=== PATIENT | male | born 1975 ===

== ENCOUNTER 2025-04-26 10:06 | Inpatient (IN) | payer OTHER ==
[~2025-04-26] VITALS: Ht 172.7 cm; Wt 114.6 kg
--- NOTE | 2025-04-26 10:42 | ED.PDOC ---
GI ASSESSMENT HPI Comments 50y M who presents to the ED for chief complaint of abdominal pain. Pt states he has been having abdominal pain since Thursday, 3 day prior. Pt states the pain is sharp, RUQ, non-radiating, with no associated exacerbating or relieving factors. Pt has associated nausea , malaise and headache but otherwise denies any other symptoms. Pt states his pain has prevented him from eating anything for the past 3x days. Pt states he went to [facility] today AM and tested COVID - and was referred to the ED for further evaluation. Pt states he ate at [employer] on Thursday when symptoms started and states he had a chicken sandwich. Pt states he was having diarrhea since last but states it stopped Thursday when abdominal pain started. Pt has noted temp of 100.4 F with otherwise stable vitals in the ED. Pt denies any other symptoms at this time. Chief Complaint: Abdominal Pain Time Seen by MD: 10:47 Reviewed Notes: Medications, Allergies Allergies: Coded Allergies: NO KNOWN ALLERGIES (Unverified , 04/26/25) Information Source: Patient Mode of Arrival: Ambulatory Brought in by: self Past Medical History PAST MEDICAL HISTORY: Denies Surgical History: Denies all surgeries Family History Family History: Reviewed,noncontributory to illness Social History Smoker: Non-Smoker Alcohol: Denies ETOH Use Drugs: Denies Drug Use Lives In: Home Constitutional: reports: weakness; denies: chills, diaphoresis, fatigue, fever, malaise, sweats, others EENTM: denies: blurred vision, double vision, ear bleeding, ear discharge, ear drainage, ear pain, ear ringing, eye pain, eye redness, hearing loss, mouth pain, mouth swelling, nasal discharge, nose bleeding, nose congestion, nose pain, photophobia, tearing, throat pain, throat swelling, voice changes, others Respiratory: denies: cough, hemoptysis, orthopnea, SOB at rest, shortness of breath, SOB with excertion, stridor, wheezing, others Cardiovascular: denies: chest pain, dizzy spells, diaphoresis, Dyspnea on exertion, edema, irregular heart beat, left arm pain, lightheadedness, palpitations, PND, syncope, others Gastrointestinal: reports: abdominal pain, diarrhea, nausea; denies: abdomen distended, blood streaked bowels, constipated, dysphagia, difficulty swallowing, hematemesis, melena, poor appetite, poor fluid intake, rectal bleeding, rectal pain, vomiting, others Genitourinary: denies: burning, dysuria, flank pain, frequency, hematuria, incontinence, penile discharge, penile sore, pain, testicle pain, testicle swelling, urgency, others Neurological: reports: headache; denies: dizziness, fainting, left sided numbness, left sided weakness, numbness, paresthesia, pre-existing deficit, right sided numbness, right sided weakness, seizure, speech problems, tingling, tremors, weakness, others Musculoskeletal: denies: back pain, gout, joint pain, joint swelling, muscle pain, muscle stiffness, neck pain, others Integumetry: denies: bruises, change in color, change in hair/nails, dryness, laceration, lesions, lumps, rash, wounds, others Allergic/Immunocompromised: denies: Difficulty Healing, Frequent Infections, Hives, Itching, others Hematologic/Lymphatic: denies: anemia, blood clots, easy bleeding, easy bruising, swollen glands, others Endocrine: denies: excessive hunger, excessive sweating, excessive thirst, excessive urination, flushing, intolerance to cold, intolerance to heat, unexplained weight gain, unexplained weight loss, others Psychiatric: denies: anxiety, bipolar disorder, depression, hopeless, panic disorder, schizophrenia, sleepless, suicidal, others All Other Systems: Reviewed and Negative Physical Exam General Appearance: Moderate Distress, Normal HEENT: Normal ENT Inspection, PERRL/EOMI Neck: Full Range of Motion, Non-Tender, Normal, Normal Inspection Respiratory: Chest Non-Tender, Lungs Clear, No Accessory Muscle Use, No Respiratory Distress, Normal Breath Sounds Cardiovascular: No Edema, No JVD, No Murmur, No Gallop, Normal Peripheral Pulses, Regular Rate/Rhythm Breast Exam: Deferred Gastrointestinal: Distended, No Organomegaly, No Pulsatile Mass, Normal Bowel Sounds, RLQ, Tenderness Genitalia: Deferred Pelvic: Deferred Rectal: Deferred Extremities: No calf tenderness, Normal capillary refill, Normal inspection, Normal range of motion, Non-tender, No pedal edema Neurologic: Alert, event staff member II-XII nml as Tested, No Motor Deficits, Normal Affect, Normal Mood, No Sensory Deficits Cerebellar Function: Normal Reflexes: Normal Skin: Dry, Normal Color, Warm Peripheral Pulses: 1+ carotid (R), 1+ carotid (L) Lymphatic: No Adenopathy Was a procedure done? Was a procedure done?: No GI differential Dx Differential Diagnosis: Appendicitis, Cholecystitis, Constipation, Diverticular disease, Gastritis/PUD, Gastroenteritis, Pancreatitis, UTI, Dehydration, Diabetes/ DKA, Electrolyte Imbalance, Food Poisoning, Bacterial, Viral, Stress Ulcer, Kidney Stone Other Differential Diagnosis biliary colic, gallstones, X-Ray, Labs, Meds, VS Vital Signs Date Time Temp Pulse Resp B/P (MAP) Pulse Ox O2 Delivery O2 Flow Rate FiO2 04/26/25 11:20 111 20 124/67 04/26/25 11:20 98.0 111 20 124/67 (86) 95 98.0 04/26/25 10:15 100.4 100 16 122/79 95 100.4 Lab Test 04/26/25 11:30 04/26/25 11:07 Range/Units Urine Color Light-orange Yellow Urine Clarity Clear Clear Urine pH 6.0 5.0-9.0 Urine Specific [place] 1.021 1.001-1.035 Urine Protein Trace H Negative Urine Ketones Negative Negative Urine Blood Negative Negative /uL Urine Nitrite Negative Negative Urine Bilirubin Negative Negative Urine Urobilinogen Normal Negative mg/dL Urine Leukocyte Esterase Negative Negative /uL Urine RBC 1 0 - 3 /hpf Urine Microscopic WBC 3 0-3 /HPF Urine Squamous Epithelial Cells None seen <5 /hpf Urine Bacteria None seen None Seen /hpf Urine Mucus Few None Seen Urine Glucose Normal Normal mg/dL White Blood Count 18.2 H 4.4-10.8 10^3/uL Red Blood Count 5.42 4.5-5.90 10^6/uL Hemoglobin 16.1 13.5-17.5 g/dL Hematocrit 45.7 41.0-53.0 % Mean Corpuscular Volume 84.4 80.0-100.0 fL Mean Corpuscular Hemoglobin 29.8 28.0-32.0 pg Mean Corpuscular Hemoglobin Concent 35.3 32.0-36.0 g/dL Red Cell Distribution Width 13.6 11.8-14.3 % Platelet Count 355 140-450 10^3/uL Mean Platelet Volume 7.6 6.9-10.8 fL Neutrophils (%) (Auto) 79.4 37.0-80.0 % Lymphocytes (%) (Auto) 9.7 L 10.0-50.0 % Monocytes (%) (Auto) 10.5 0.0-12.0 % Eosinophils (%) (Auto) 0.1 0.0-7.0 % Basophils (%) (Auto) 0.3 0.0-2.0 % Neutrophils # (Auto) 14.5 H 1.6-8.6 10 ^3/uL Lymphocytes # (Auto) 1.8 0.4-5.4 10 ^3/uL Monocytes # (Auto) 1.9 H 0-1.3 10 ^3/uL Eosinophils # (Auto) 0 0-0.8 10 ^3/uL Basophils # (Auto) 0 0-0.2 10 ^3/uL Nucleated Red Blood Cells 0.2 % Sodium Level 136 136-145 mmol/L Potassium Level 3.7 3.5-5.1 mmol/L Chloride Level 101 98-107 mmol/L Carbon Dioxide Level 26 20-31 mmol/L Anion Gap 9 5-15 Blood Urea Nitrogen 9 9-23 mg/dL Creatinine 1.25 0.700-1.30 mg/dL Glomerular Filtration Rate Calc 71 >90 mL/min BUN/Creatinine Ratio 7.2 L 10.0-20.0 Serum Glucose 122 H 74-106 mg/dL Calcium Level 8.9 8.7-10.4 mg/dL Magnesium Level 2.2 1.6-2.6 mg/dL Total Bilirubin 1.8 H 0.2-1.0 mg/dL Aspartate Amino Transferase (AST) 19 13-40 U/L Alanine Aminotransferase (ALT) 18 7-40 U/L Alkaline Phosphatase 107 46-116 U/L Total Protein 7.9 5.7-8.2 g/dL Albumin 4.5 3.2-4.8 g/dL Lipase 34 12-53 U/L Current Medications Medications (Trade) Dose Ordered Sig/Kalie Route Start Time Stop Time Status Last Admin Metoclopramide HCl (Reglan Injection) 10 mg ONCE ONCE IV 04/26/25 10:30 04/26/25 10:33 DC 04/26/25 11:16 Sodium Chloride 1,000 ml @ 1,000 mls/hr Q1H ONCE IVB 04/26/25 10:30 04/26/25 11:29 DC 04/26/25 11:16 Hydromorphone HCl (Dilaudid Injection) 0.5 mg ONCE ONCE IV 04/26/25 10:30 04/26/25 10:33 DC 04/26/25 11:[address] [address] Ph: [phone] DIAGNOSTIC IMAGING Diagnostic Imaging Report : [id number] Signed PATIENT: ABDULAZIZ CARRILLO ACCT: [id number] UNIT: [id number] : 1975 LOC: ER ROOM / BED: / AGE / SEX: 50 / M ADM STATUS: REG ER SERVICE 1029 ORDERING PHYSICIAN: JOSE E GUILLAUME MD PROCEDURE(s): ABPLIV - CT AB PEL WITH IV CON ONLY REASON: RIGHT-SIDED ABDOMINAL PAIN ORDER NUMBER(s): [id number], ACCESSION NUMBER(s): [id number] Indication: RIGHT-SIDED ABDOMINAL PAIN Technique: CT axial images of the abdomen and pelvis are obtained with intravenous contrast. Coronal and sagittal reformats were obtained. Radiation Dose Information: CTDI volume is 24.32 mGy. Dose-length product is 1471.95 mGy*cm Comparison: None FINDINGS: Lung bases demonstrate no pleural effusion. Adrenal glands, spleen, pancreas unremarkable. No enhancing hepatic lesion. No CT evidence for cholelithiasis. Kidneys demonstrate no hydronephrosis. Stomach distended. Small bowel loops are moderately distended. Moderate volume stool in the colon. Dilated appendix measuring 18 mm. Periappendiceal edema/ stranding and small amount of air /pneumoperitoneum. Obs tructing appendicolith measuring 14 mm. Numerous right lower quadrant lymph nodes. Extensive Right lower quadrant edema and inflammatory stranding. Abdominal aorta normal in caliber. The bladder partially distended. Trace free pelvic fluid. No inguinal lymphadenopathy. IMPRESSION: Perforated appendicitis with large obstructing appendicolith measuring 14 mm. Findings discussed with JOSE E GUILLAUME at 04/26/2025 12:54 PM, and acknowledged receipt and understanding of the findings. .. ATED BY: ALEIDA GATES MD DICTATED DATE/TIME: 04/26/25 1255 SIGNED BY: ALEIDA GATES MD SIGNED DATE/TIME: 04/26/25 1255 CC: [place] [id number] Ph: [phone] DIAGNOSTIC IMAGING Diagnostic Imaging Report : [id number] Signed PATIENT: ABDULAZIZ CARRILLO ACCT: [id number] UNIT: [id number] : 1975 LOC: ER ROOM / BED: / AGE / SEX: 50 / M ADM STATUS: REG ER SERVICE 1136 ORDERING PHYSICIAN: JOSE E GUILLAUME MD PROCEDURE(s): CXR2 - CHEST TWO VIEWS ROUTINE REASON: Coughing large amount of material ORDER NUMBER(s): [id number], ACCESSION NUMBER(s): [id number] XY CHEST TWO VIEWS ROUTINE, HISTORY: Coughing large amount of material COMPARISON: None None TECHNICAL DATA: 2 view of the chest was obtained. FINDINGS: Lines and tubes: None Cardiomediastinal silhouette: normal Pulmonary vasculature: normal Lung expansion: normal Lung airspace: normal Lung interstitium: normal Pleura: normal Pneumothorax: no Bones: Unremarkable Other: no IMPRESSION: No acute intrathoracic abnormality. ATED BY: OZZY WHARTON MD DICTATED DATE/TIME: 04/26/25 1236 SIGNED BY: OZZY WHARTON MD SIGNED DATE/TIME: 04/26/25 1236 CC: X-Ray, Labs, Meds, VS Comment 50-year-old male came to the emergency department sent by the [facility] because of right-sided abdominal pain patient is low-grade fever Chest x-ray is normal EKG CBC 41199 with 79.4% neutrophils H&H normal Urine negative Lipase [address] abdomen and pelvis shows perforated appendix with a large appendicolith light Surgery will be consulted Patient is a [facility] member non transferrable at this time Patient will be admitted for further care Time of 1ST Reevaluation: 11:20 Reevaluation 1ST: Unchanged Patient Education/Counseling: Diagnosis, Treatment, Prognosis, Need For Follow Up Family Education/Counseling: Diagnosis, Treatment, Prognosis, Need For Follow Up, No Family Present SEPSIS Sepsis Screen Date sepsis recognized/suspect: Apr 26, 2025 Time Sepsis recognized/suspect: 10:17 Recent Procedure: No On Antibiotic Therapy: Yes Heart Rate >90: No Temp<36 C (96.8 F) or >38.3 C: No SBP <90 or MAP <65 mmHG: No New Acute Mental Status Change: No Is the patient on CPAP, BIPAP,: No IV fluid challenge completed?: Yes Physician Orders Ct Ab Pel With Iv Con Only (04/26/25 10:29) Heplock Iv (04/26/25 10:29) Electrocardigram (04/26/25 10:29) Sodium Chloride 0.9% (04/26/25 10:30) Heplock Iv (04/26/25 11:36) Blood Pressure (04/26/25 11:36) Chest Two Views Routine (04/26/25 11:36) Sodium Chloride 0.9% (04/26/25 13:00) Blood Culture (04/26/25 13:00) Ceftriaxone 2gm/50ml (Rocephin 2gm/50ml) (04/26/25 13:00) PTPTT (04/26/25 13:00) Metronidazole 500mg/100ml (Flagyl 500mg/ (04/26/25 13:00) Vital Signs Date Time Temp Pulse Resp B/P (MAP) Pulse Ox O2 Delivery O2 Flow Rate FiO2 04/26/25 11:20 111 20 124/67 04/26/25 11:20 98.0 111 20 124/67 (86) 95 98.0 04/26/25 10:15 100.4 100 16 122/79 95 100.4 Laboratory Tests Test 04/26/25 11:07 White Blood Count 18.2 10^3/uL (4.4-10.8) H Medications Medications Dose Ordered Sig/Kalie Route Start Time Stop Time Status Last Admin Dose Admin Hydromorphone HCl 0.5 mg ONCE ONCE IV 04/26/25 10:30 04/26/25 10:33 DC 04/26/25 11:20 Metoclopramide HCl 10 mg ONCE ONCE IV 04/26/25 10:30 04/26/25 10:33 DC 04/26/25 11:16 Sodium Chloride 1,000 ml @ 1,000 mls/hr Q1H ONCE IVB 04/26/25 10:30 04/26/25 11:29 DC 04/26/25 11:16 Reassessment Post Fluid Skin Temperature: Warm Skin Moisture: Moist Skin Tugor: WNL Skin Color: [place] Fingernail Color: WNL (Patient with few signs for sepsis patient has perforated appendix) Departure 1 Departure Time of Disposition: 13:11 Impression: Primary Impression: Acute abdominal pain in right lower quadrant Additional Impression: Perforated appendix Disposition: ADMITTED INPATIENT Admit to: Tele Condition: Serious Critical Care Note Critical Care Time?: No Stability Stability form required: Yes Heart Score Heart Score: Heart Score Response (Comments) Value History N/A 0 EKG N/A 0 Age 45-64 1 Risk Factors No known risk factors 0 Troponin N/A 0 Total 1 I personally scribed for JOSE E GUILLAUME MD ([email or web address]) on 04/26/25 at 10:42. Tracey ctronically submitted by Blayne Zheng ([email or web address]). I personally scribed for JOSE E GUILLAUME MD ([email or web address]) on 04/26/25 at 10:50. Electronically submitted by Blayne Zheng ([email or web address]). I personally scribed for JOSE E GUILLAUME MD ([email or web address]) on 04/26/25 at 13:03. Electronically submitted by Blayne Zheng ([email or web address]). JOSE E GUILLAUME MD Apr 26, 2025 10:42
[2025-04-26] MEDS: METOCLOPRAMIDE HCL 5MG/ml INJ 2ml VIAL IV ONE (11:16)
[2025-04-26] MEDS: SODIUM CHLORIDE 0.9% 1,000 ML IVB ONE ×2 (11:16→14:21)
[2025-04-26] MEDS: HYDROmorphone HCL 2 MG/ML VL/or syr IV ONE (11:20)
[2025-04-26 11:47] LABS: Hematocrit 45.7 % (41.0-53.0); Hemoglobin 16.1 g/dL (13.5-17.5); Mean Corpuscular Hemoglobin 29.8 pg (28.0-32.0); Mean Corpuscular Volume 84.4 fL (80.0-100.0); Nucleated Red Blood Cells % 0.2 %
[2025-04-26 12:00] LABS: Alanine Aminotransferase 18 U/L (7-40); Albumin 4.5 g/dL (3.2-4.8); Alkaline Phosphatase 107 U/L (46-116); Anion Gap 9 (5-15); BUN/Creatinine Ratio 7.2 (10.0-20.0); Blood Urea Nitrogen 9 mg/dL (9-23); Calcium 8.9 mg/dL (8.7-10.4); Carbon Dioxide 26 mmol/L (20-31); Chloride 101 mmol/L (98-107); Lipase 34 U/L (12-53); Magnesium 2.2 mg/dL (1.6-2.6); Potassium 3.7 mmol/L (3.5-5.1); Sodium 136 mmol/L (136-145); Total Protein 7.9 g/dL (5.7-8.2)
[2025-04-26 12:01] LABS: Bilirubin, Total 1.8 mg/dL (0.2-1.0); Glucose 122 mg/dL (74-106)
[2025-04-26 12:32] LABS: Urine Protein, UAD TRACE (Negative)
--- NOTE | 2025-04-26 12:39 | DVH ---
XY CHEST TWO VIEWS ROUTINE, HISTORY: Coughing large amount of material COMPARISON: None None TECHNICAL DATA: 2 view of the chest was obtained. FINDINGS: Lines and tubes: None Cardiomediastinal silhouette: normal Pulmonary vasculature: normal Lung expansion: normal Lung airspace: normal Lung interstitium: normal Pleura: normal Pneumothorax: no Bones: Unremarkable Other: no IMPRESSION: No acute intrathoracic abnormality.
--- NOTE | 2025-04-26 12:53 | DVH ---
Indication: RIGHT-SIDED ABDOMINAL PAIN Technique: CT axial images of the abdomen and pelvis are obtained with intravenous contrast. Coronal and sagittal reformats were obtained. Radiation Dose Information: CTDI volume is 24.32 mGy. Dose-length product is 1471.95 mGy*cm Comparison: None FINDINGS: Lung bases demonstrate no pleural effusion. Adrenal glands, spleen, pancreas unremarkable. No enhancing hepatic lesion. No CT evidence for chol elithiasis. Kidneys demonstrate no hydronephrosis. Stomach distended. Small bowel loops are moderately distended. Moderate volume stool in the colon. Dilated appendix measuring 18 mm. Periappendiceal edema/ strandin g and small amount of air /pneumoperitoneum. Obstructing appendicolith measuring 14 mm. Numerous ri ght lower quadrant lymph nodes. Extensive Right lower quadrant edema and inflammatory stranding. Abdominal aorta normal in caliber. The bladder partially distended. Trace free pelvic fluid. No ingu inal lymphadenopathy. IMPRESSION: Perforated appendicitis with large obstructing appendicolith measuring 14 mm. Findings discussed with JOSE E GUILLAUME at 04/26/2025 12:54 PM, and acknowledged receipt and understand ing of the findings. ..
[2025-04-26 13:27] LABS: INR 1.14 (0.9-1.15); Partial Thromboplastin Time 34.2 SEC (24.5-34.5); Prothrombin Time 11.9 sec (9.3-11.8)
[2025-04-26] MEDS: SODIUM CHLORIDE 0.9% 500 ML IVB ONE (14:21)
--- NOTE | 2025-04-26 14:59 | DVHINCON2 ---
Consultation - Surgical Date Seen: Apr 26, 2025 Referring Physician Reason for Consultation Perforated appendicitis History of Present Illness History of Present Illness Mr. Camarena is a 50-year-old male who presented to the ED with abdominal pain stabbing that started on Thursday. Prior to the abdominal pain starting he had diarrhea for 3 days prior. Since the pain started has been getting worse day by day and now is localized to the right lower quadrant, previously it was generalized. Patient went today to his doctor and when they pressed on the right lower quadrant, I made the pain worse and he was sent to the emergency department. Denies any nausea or vomiting. Denies fevers, chills, changes in urinary or stooling habits. Past Medical/Surgical History Past Medical/Surgical History Past medical history/past surgical history denies Family and Social History Family and Social History Family history noncontributory ETOH/T Ob/drugs denies Allergies and medications Allergies: Coded Allergies: NO KNOWN ALLERGIES (Unverified , 04/26/25) Review of systems Review of Systems: Deferred Examination Vital signs Vital Signs Date Time Temp Pulse Resp B/P (MAP) Pulse Ox O2 Delivery O2 Flow Rate FiO2 04/26/25 11:20 111 20 124/67 04/26/25 11:20 98.0 95 98.0 Laboratory Labs Test 04/26/25 11:30 04/26/25 11:07 Range/Units Urine Color Light-orange Yellow Urine Clarity Clear Clear Urine pH 6.0 5.0-9.0 Urine Specific [place] 1.021 1.001-1.035 Urine Protein Trace H Negative Urine Ketones Negative Negative Urine Blood Negative Negative /uL Urine Nitrite Negative Negative Urine Bilirubin Negative Negative Urine Urobilinogen Normal Negative mg/dL Urine Leukocyte Esterase Negative Negative /uL Urine RBC 1 0 - 3 /hpf Urine Microscopic WBC 3 0-3 /HPF Urine Squamous Epithelial Cells None seen <5 /hpf Urine Bacteria None seen None Seen /hpf Urine Mucus Few None Seen Urine Glucose Normal Normal mg/dL White Blood Count 18.2 H 4.4-10.8 10^3/uL Red Blood Count 5.42 4.5-5.90 10^6/uL Hemoglobin 16.1 13.5-17.5 g/dL Hematocrit 45.7 41.0-53.0 % Mean Corpuscular Volume 84.4 80.0-100.0 fL Mean Corpuscular Hemoglobin 29.8 28.0-32.0 pg Mean Corpuscular Hemoglobin Concent 35.3 32.0-36.0 g/dL Red Cell Distribution Width 13.6 11.8-14.3 % Platelet Count 355 140-450 10^3/uL Mean Platelet Volume 7.6 6.9-10.8 fL Neutrophils (%) (Auto) 79.4 37.0-80.0 % Lymphocytes (%) (Auto) 9.7 L 10.0-50.0 % Monocytes (%) (Auto) 10.5 0.0-12.0 % Eosinophils (%) (Auto) 0.1 0.0-7.0 % Basophils (%) (Auto) 0.3 0.0-2.0 % Neutrophils # (Auto) 14.5 H 1.6-8.6 10 ^3/uL Lymphocytes # (Auto) 1.8 0.4-5.4 10 ^3/uL Monocytes # (Auto) 1.9 H 0-1.3 10 ^3/uL Eosinophils # (Auto) 0 0-0.8 10 ^3/uL Basophils # (Auto) 0 0-0.2 10 ^3/uL Nucleated Red Blood Cells 0.2 % Prothrombin Time 11.9 H 9.3-11.8 sec Prothrombin Time INR 1.14 0.9-1.15 Activated Partial Thromboplast Time 34.2 24.5-34.5 SEC Sodium Level 136 136-145 mmol/L Potassium Level 3.7 3.5-5.1 mmol/L Chloride Level 101 98-107 mmol/L Carbon Dioxide Level 26 20-31 mmol/L Anion Gap 9 5-15 Blood Urea Nitrogen 9 9-23 mg/dL Creatinine 1.25 0.700-1.30 mg/dL Glomerular Filtration Rate Calc 71 >90 mL/min BUN/Creatinine Ratio 7.2 L 10.0-20.0 Serum Glucose 122 H 74-106 mg/dL Calcium Level 8.9 8.7-10.4 mg/dL Magnesium Level 2.2 1.6-2.6 mg/dL Total Bilirubin 1.8 H 0.2-1.0 mg/dL Aspartate Amino Transferase (AST) 19 13-40 U/L Alanine Aminotransferase (ALT) 18 7-40 U/L Alkaline Phosphatase 107 46-116 U/L Total Protein 7.9 5.7-8.2 g/dL Albumin 4.5 3.2-4.8 g/dL Lipase 34 12-53 U/L Examination: GENERAL:Normal, HEENT:Normal (No icterus), ABDOMEN:Abnormal (Nondistended, soft, depressible, no scars, right lower quadrant tenderness, positive Rovsing sign) Problem List/Assessment/Plan Problems: (1) Perforated appendix Assessment and Plan Mr. Camarena is a 50-year-old male who presented with perforated appendicitis. CT was reviewed and shows large appendicolith near the base of the appendix with distal thickening of the appendix, surrounding stranding and dots of free air. These findings are concerning for perforated appendix. Patient will benefit from laparoscopic appendectomy. Procedure, risks, benefits, complications, and alternatives were discussed with the patient. Patient would like to proceed with surgical plan. 1. On-call to OR for laparoscopic appendectomy, possible open 2. NPO 3. IV antibiotics 4. Pain and nausea control Plan discussed with Plan discussed with: Patient Visit Coding Surgery Date of Service if different f: Apr 26, 2025 Billing Provider: SANFORD SPENCER MD Surgery Visit Codes: 43848 - INP CONSULT <110 MIN SANFORD SPENCER MD Apr 26, 2025 14:59
[2025-04-26] MEDS ORDERED: SODIUM CHLORIDE 0.9% 1,000 ML IV SCH (15:00)
[2025-04-26] MEDS ORDERED: MIDAZOLAM HCL 2MG/2ML 2ml VIAL (1mg/ml) ONE (15:42)
[2025-04-26] MEDS ORDERED: fentaNYL CITRATE 100 MCG/2 ML VL ONE (15:42)
[2025-04-26] MEDS ORDERED: KETOROLAC TROMETH 30 MG/ML 1ML VIAL ONE (15:42)
[2025-04-26] MEDS ORDERED: GLYCOPYRROLATE 0.2 MG/ML 1ML VIAL ONE (15:42)
[2025-04-26] MEDS ORDERED: LIDOCAINE 2% (LOCAL ANESTH.) PF 5ml SDV ONE (15:42)
[2025-04-26] MEDS ORDERED: ONDANSETRON HCL 4 MG/2 ML VIAL ONE (15:42)
[2025-04-26] MEDS ORDERED: HYDROmorphone HCL 2 MG/ML VL/or syr ONE (15:42)
[2025-04-26] MEDS ORDERED: PROPOFOL 10 MG/ML 20 ML IV ONE (15:42)
[2025-04-26] MEDS: BUPIVACAINE HCL 0.25% P/F 10 ML VIAL ONE (18:00)
[2025-04-26] MEDS ORDERED: SUGAMMADEX 200mg/2ml Vial (100MG/ML) IV ONE (18:09)
[2025-04-26 18:22] VITALS: PULSE 95; RESP 14; O2SAT 100
[2025-04-26] MEDS ORDERED: HYDROmorphone HCL 2 MG/ML VL/or syr IV PRN (18:30)
[2025-04-26] MEDS ORDERED: ONDANSETRON HCL 4 MG/2 ML VIAL IV PRN (18:30)
--- NOTE | 2025-04-26 18:41 | DVHOP2 ---
Operative Report - 2 Report Details Date: 04/26/25 Preop Diagnosis: Perforated appendicitis Postop Diagnosis: Gangrenous and perforated appendicitis Surgeon: Winston Whitney MD Anesthesiologist: Dr. Alamo Anesthesia: General Consent: The patient was informed of the risks and benefits of the procedure. These include but are not limited to complications of anesthesia, postoperative infection, incomplete relief of symptoms, recurrence of symptoms, damage to blood vessels, nerves and tendons, deep venous thrombosis, pulmonary embolism and possible need for repeat surgery in the future. Complications: None Estimated Blood Loss: 10 mL Findings: Gangrenous and perforated appendix with large fecalith near the base of the appendix. Perforation was proximal to the base. Abscess pocket in the right lower quadrant adjacent to the appendix. Indications for Surgery: Perforated appendicitis Name of Procedure Performed Laparoscopic appendectomy Procedure Details Procedure Details: Upon arrival to the operating room the patient was placed in the operating table placed in the supine position with arms extended. General endotracheal anesthesia was induced. Time-out was observed. Patient was prepped and draped in the standard sterile surgical fashion with chlorhexidine. I then made an infraumbilical curvilinear incision and carried the dissection down to fascia. Once at the fascia I grasped the umbilical stalk with Antonio clamp, and walked i t down to the umbilical stalk base. Once at the base I proceeded to gain entry into the peritoneal cavity using Jennifer technique. I then placed 2 interrupted fascial retention sutures of 0 Vicryl. I then inserted the Jennifer and insufflated the peritoneal cavity to 15 mmHg with toleration. I then inserted a 30 degree 10 mm camera and surveyed the entry site, no injuries. I then inserted 2 5 mm ports 1 at the suprapubic area and 1 in the left lower quadrant under direct vision. Patient was then placed in the Trendelenburg position and right side up. There were loops of small bowel all over the right lower quadrant cecum. This small bowel was swept aside, I was connected to the lateral wall with thin adhesions. Once the small bowel was swept aside pus started emanating from a pus pocket in the lateral appendix area. Purulent fluid was suctioned and sent for culture. I then noted a matted ball of tissue caudal to the cecum. Near the cecum I saw a perforation with necrotic tissue surrounding and a fecalith in the lumen. Given that there was too much inflammation surrounding the base of the appendix and was sent clearly gilda phillips I proceeded to start freeing the mesoappendix from the tip of the appendix. I utilized the LigaSure device, and walk my way to the base of the appendix. Once the base was completely free I noted that the perforation was immediately prior to the base, but I had a healthy landing spot for the stapler. I then transected the appendix at its base with a Endo-KATHERINE 60 mm blue load. Appendix and fecalith were placed in the Endo-Catch bag and removed from the peritoneal cavity through the umbilical incision. I then proceeded to inspect the mesoappendix it was hemostatic. I then proceeded to inspect the staple line at the cecum, it was intact and the appendix was completely removed. I then proceeded to irrigate serially at the operative site. I then proceeded to suctioned some inflammatory fluid from the pelvis. Then again I took a 2nd look at in the mesoappendix it was hemostatic and the cecal staple line was intact. This concluded the intraperitoneal portion of the operation. All counts complete and correct. I then removed the 2 5 mm ports under direct vision, no bleeding from abdominal wall. I then proceeded to close the fascial retention suture that was previously placed. All skin sites were closed with 4-0 Monocryl and Dermabond. 0.25% Marcaine was used as local anesthetic. Patient tolerated the procedure well and was transferred to PACU in stable condition. Specimen: Appendix and fecaliths Condition Stable Disposition Still a Patient WINSTON SPENCER MD Apr 26, 2025 18:41
[2025-04-26] MEDS ORDERED: NITROGLYCERIN 0.4 MG SL TAB SL PRN (18:45)
[2025-04-26 18:55] VITALS: PULSE 86; RESP 10; O2SAT 94
[2025-04-26] MEDS ORDERED: MORPHINE SULFATE 4 MG/ML SYR/VIAL IV PRN (19:00)
[2025-04-26] MEDS: ACETAMINOPHEN IV 1000 MG/100ML (10MG/ML) IV ONE (19:05)
[2025-04-26 20:03] VITALS: BP 122/83; PULSE 81; RESP 17; TEMP 97.7; O2SAT 95
[2025-04-26 21:19] VITALS: BP 122/83; PULSE 80; RESP 17; TEMP 97.7; O2SAT 95
[2025-04-26] MEDS: PIPERACILLIN-TAZO 4.5GM 100 ML IV SCH (21:52)
[2025-04-27] VITALS (8 sets, daily range): BP systolic 113–136; BP diastolic 62–85; PULSE 63–97; RESP 17–20; TEMP 96.9–98.5; O2SAT 94–95
[2025-04-27 07:01] LABS: Hematocrit 39.3 % (41.0-53.0); Hemoglobin 13.6 g/dL (13.5-17.5); Mean Corpuscular Hemoglobin 29.7 pg (28.0-32.0); Mean Corpuscular Volume 85.8 fL (80.0-100.0); Nucleated Red Blood Cells % 0.0 %
[2025-04-27 07:09] LABS: Anion Gap 10 (5-15); Carbon Dioxide 24 mmol/L (20-31); Chloride 104 mmol/L (98-107); Potassium 3.8 mmol/L (3.5-5.1); Sodium 138 mmol/L (136-145)
[2025-04-27 07:10] LABS: Calcium 8.2 mg/dL (8.7-10.4)
[2025-04-27 07:15] LABS: BUN/Creatinine Ratio 9.2 (10.0-20.0)
[2025-04-27 07:20] LABS: Blood Urea Nitrogen 9 mg/dL (9-23); Glucose 149 mg/dL (74-106)
[2025-04-27] MEDS ORDERED: HYDROmorphone HCL 2 MG/ML VL/or syr IV PRN (13:15)
--- NOTE | 2025-04-27 13:16 | DVHPN2 ---
Progress Note - Surgical Date Seen: Apr 27, 2025 Post op day Post op day: 1 Subjective Patient reports: Feels better (Patient feeling well this morning, hungry, ambulating, with minimal postop pain.) Review of Systems: Deferred Objective Vital signs Vital Sign Date Time Temp Pulse Resp B/P (MAP) Pulse Ox O2 Delivery O2 Flow Rate FiO2 04/27/25 12:57 98.2 91 18 133/81 (98) 95 98.2 04/26/25 21:19 Room Air* 0 21 Total Intake and Output 04/26/25 04/26/25 04/27/25 15:00 23:00 07:00 Intake Total 100 ml 350 ml Output Total 525 ml Balance -425 ml 350 ml Medications Current Medications Medications Dose Ordered Sig/Kalie Route Start Time Stop Time Status Last Admin Dose Admin Sodium Chloride 1,000 ml @ 150 mls/hr Q6H40M IV 04/26/25 15:00 Piperacillin Sod/ Tazobactam Sod 100 ml @ 25 mls/hr Q8HR IV 04/26/25 22:00 04/27/25 05:41 25 MLS/HR Nitroglycerin 0.4 mg Q5MINP PRN SL 04/26/25 18:45 Morphine Sulfate 2 mg Q30M PRN IV 04/26/25 19:00 Acetaminophen/ Hydrocodone Bitart 1 tab Q6HPRN PRN PO 04/27/25 11:30 Laboratory Laboratory Tests 04/27/25 06:28 Test 04/27/25 06:28 Range/Units Serum Glucose 149 H 74-106 mg/dL Microbiology Date/Time Source Procedure Growth Status 04/26/25 18:08 Other Other Gram Stain - Final Resulted 04/26/25 18:08 Other Other Anaerobic Culture - Preliminary Resulted 04/26/25 18:08 Other Other Aerobic Culture - Preliminary Resulted Examination: GENERAL:Normal, ABDOMEN:Normal (Nondistended, incision sites with skin glue in place and without surrounding signs of infection, soft, depressible, appropriate tenderness) Labs and/or images reviewed: Labs reviewed by me (Leukocytosis 23.6 from 18.2) Problem List/Assessment/Plan Problems: (1) Acute gangrenous appendicitis with perforation and peritonitis Assessment and Plan Mr. Camarena is a 50-year-old male who presented yesterday with acute appendicitis. He is postop day 1 from laparoscopic appendectomy due to a gangrenous and perforated appendix. There was abscess pocket adjacent to the appendix. Patient will benefit from 48 hours of IV antibiotics followed by 3 more days of p.o. antibiotics upon discharge for a total of 5 days. I explained to the patient that this is to try to limit and abscess from forming although despite the postoperative antibiotics, and abscess my still form. With perforated appendicitis this approximately a 30-40% increased risk of developing an intraperitoneal abscess. 1. IV antibiotics for 48 hours 2. Upon discharge he is going to need 3 more days of p.o. antibiotics 3. Regular diet 4. A.m. labs 5. Pain and nausea control 6. Out of bed and ambulate My Orders My Orders Orders - SANFORD SPENCER MD Procedure Category Date Status Time Obtain Consent For: ORDERS 04/26/25 Transmitted 14:47 Obtain Consent For SUE 04/26/25 In Process Anesthesia 14:47 Sodium Chloride 0.9% PHA 04/26/25 In Process 15:00 Anaerobic Culture SYDNI 04/26/25 In Process 18:09 Gram Stain SYDNI 04/26/25 In Process 18:09 Routine Bacterial SYDNI 04/26/25 In Process Culture 18:09 Clear Liq Diet DIET 04/26/25 Transmitted Dinner Piperacillin-Tazo PHA 04/26/25 In Process 4.5gm (Zosyn 4.5gm/100 22:00 Plan discussed with Plan discussed with: Patient, Spouse Visit Coding Surgery Date of Service if different f: Apr 27, 2025 Billing Provider: SANFORD SPENCER MD Surgery Visit Codes: [id number] INP/OBS CARE(HIGH) SANFORD SPENCER MD Apr 27, 2025 13:16
--- NOTE | 2025-04-27 13:19 | DVHHP2 ---
Review of Systems Allergies: Coded Allergies: NO KNOWN ALLERGIES (Unverified , 04/26/25) Medications Current Medications Medications Dose Ordered Sig/Kalie Route Start Time Stop Time Status Last Admin Dose Admin Sodium Chloride 1,000 ml @ 150 mls/hr Q6H40M IV 04/26/25 15:00 Piperacillin Sod/ Tazobactam Sod 100 ml @ 25 mls/hr Q8HR IV 04/26/25 22:00 04/27/25 05:41 25 MLS/HR Nitroglycerin 0.4 mg Q5MINP PRN SL 04/26/25 18:45 Morphine Sulfate 2 mg Q30M PRN IV 04/26/25 19:00 Acetaminophen/ Hydrocodone Bitart 1 tab Q6HPRN PRN PO 04/27/25 11:30 Exam Vital Signs Vital Signs Date Time Temp Pulse Resp B/P (MAP) Pulse Ox O2 Delivery O2 Flow Rate FiO2 04/27/25 12:57 98.2 91 18 133/81 (98) 95 98.2 04/26/25 21:19 Room Air* 0 21 Labs/Xrays Labs Test 04/27/25 06:28 04/26/25 11:30 04/26/25 11:07 Range/Units White Blood Count 23.6 #H 4.4-10.8 10^3/uL Red Blood Count 4.58 4.5-5.90 10^6/uL Hemoglobin 13.6 # 13.5-17.5 g/dL Hematocrit 39.3 #L 41.0-53.0 % Mean Corpuscular Volume 85.8 80.0-100.0 fL Mean Corpuscular Hemoglobin 29.7 28.0-32.0 pg Mean Corpuscular Hemoglobin Concent 34.5 32.0-36.0 g/dL Red Cell Distribution Width 13.5 11.8-14.3 % Platelet Count 290 140-450 10^3/uL Mean Platelet Volume 7.7 6.9-10.8 fL Neutrophils (%) (Auto) 89.2 H 37.0-80.0 % Lymphocytes (%) (Auto) 5.0 L 10.0-50.0 % Monocytes (%) (Auto) 5.7 0.0-12.0 % Eosinophils (%) (Auto) 0.0 0.0-7.0 % Basophils (%) (Auto) 0.1 0.0-2.0 % Neutrophils # (Auto) 21.0 H 1.6-8.6 10 ^3/uL Lymphocytes # (Auto) 1.2 0.4-5.4 10 ^3/uL Monocytes # (Auto) 1.4 H 0-1.3 10 ^3/uL Eosinophils # (Auto) 0 0-0.8 10 ^3/uL Basophils # (Auto) 0 0-0.2 10 ^3/uL Nucleated Red Blood Cells 0.0 % Sodium Level 138 136-145 mmol/L Potassium Level 3.8 3.5-5.1 mmol/L Chloride Level 104 98-107 mmol/L Carbon Dioxide Level 24 20-31 mmol/L Anion Gap 10 5-15 Blood Urea Nitrogen 9 9-23 mg/dL Creatinine 0.98 0.700-1.30 mg/dL Glomerular Filtration Rate Calc 95 >90 mL/min BUN/Creatinine Ratio 9.2 L 10.0-20.0 Serum Glucose 149 H 74-106 mg/dL Calcium Level 8.2 L 8.7-10.4 mg/dL Urine Color Light-orange Yellow Urine Clarity Clear Clear Urine pH 6.0 5.0-9.0 Urine Specific [place] 1.021 1.001-1.035 Urine Protein Trace H Negative Urine Ketones Negative Negative Urine Blood Negative Negative /uL Urine Nitrite Negative Negative Urine Bilirubin Negative Negative Urine Urobilinogen Normal Negative mg/dL Urine Leukocyte Esterase Negative Negative /uL Urine RBC 1 0 - 3 /hpf Urine Microscopic WBC 3 0-3 /HPF Urine Squamous Epithelial Cells None seen <5 /hpf Urine Bacteria None seen None Seen /hpf Urine Mucus Few None Seen Urine Glucose Normal Normal mg/dL Prothrombin Time 11.9 H 9.3-11.8 sec Prothrombin Time INR 1.14 0.9-1.15 Activated Partial Thromboplast Time 34.2 24.5-34.5 SEC Magnesium Level 2.2 1.6-2.6 mg/dL Total Bilirubin 1.8 H 0.2-1.0 mg/dL Aspartate Amino Transferase (AST) 19 13-40 U/L Alanine Aminotransferase (ALT) 18 7-40 U/L Alkaline Phosphatase 107 46-116 U/L Total Protein 7.9 5.7-8.2 g/dL Albumin 4.5 3.2-4.8 g/dL Lipase 34 12-53 U/L Microbiology Date/Time Source Procedure Growth Status 04/26/25 18:08 Other Other Gram Stain - Final Resulted 04/26/25 18:08 Other Other Anaerobic Culture - Preliminary Resulted 04/26/25 18:08 Other Other Aerobic Culture - Preliminary Resulted SEPSIS Sepsis Screen Date sepsis recognized/suspect: Apr 26, 2025 Time Sepsis recognized/suspect: 10:17 Recent Procedure: No On Antibiotic Therapy: Yes Heart Rate >90: No Temp<36 C (96.8 F) or >38.3 C: No SBP <90 or MAP <65 mmHG: No New Acute Mental Status Change: No Is the patient on CPAP, BIPAP,: No IV fluid challenge completed?: Yes Physician Orders Hydrocodone-Acet 5/325mg Tab (Gardner 5/32 (04/27/25 11:30) NS (04/27/25 13:15) Full Liq Diet (04/27/25 Lunch) Hydromorphone Injection (Dilaudid Inject (04/27/25 13:15) Complete Blood Count (04/28/25 06:00) Comprehensive Metabolic Panel (04/28/25 06:00) Discontinue Tele (04/27/25 13:16) Transfer Orders (04/27/25 13:16) Vital Signs Date Time Temp Pulse Resp B/P (MAP) Pulse Ox O2 Delivery O2 Flow Rate FiO2 04/27/25 12:57 98.2 91 18 133/81 (98) 95 98.2 04/27/25 09:00 97.8 83 18 118/62 (80) 95 97.8 04/27/25 08:00 74 04/27/25 05:20 96.9 70 17 117/71 (86) 95 96.9 Laboratory Tests Test 04/27/25 06:28 White Blood Count 23.6 10^3/uL (4.4-10.8) #H Reassessment Post Fluid Skin Temperature: Warm Skin Moisture: Moist Skin Tugor: WNL Skin Color: [place] Fingernail Color: WNL (Patient with few signs for sepsis patient has perforated appendix) Assessment/Plan Assessment/Plan see dictated note Plan discussed with: Patient My Orders Orders - VIOLETA HERNDON MD Procedure Category Date Status Time Hydrocodone-Acet PHA 04/27/25 In Process 5/325mg Tab (Gardner 11:30 NS PHA 04/27/25 Verified 13:15 Full Liq Diet DIET 04/27/25 Verified Lunch Hydromorphone PHA 04/27/25 Verified Injection (Dilaudid 13:15 Complete Blood Count LAB 04/28/25 Verified 06:00 Comprehensive LAB 04/28/25 Verified Metabolic Panel 06:00 Discontinue Tele SUE 04/27/25 Verified 13:16 Transfer Orders XFER 04/27/25 Verified 13:16 Date of Service: Apr 27, 2025 Billing Provider: VIOLETA HERNDON MD Common Visit Codes: [id number] INP/OBS CARE (HIGH) VIOLETA HERNDON MD Apr 27, 2025 13:19
--- NOTE | 2025-04-27 13:26 | DVHHP ---
ADMIT DATE: 04/27/2025 HISTORY OF PRESENT ILLNESS: The patient is a 50-year-old gentleman who was admitted with a history of ongoing pain going on for 3 days prior to admission. It was also accompanied by generalized body aches. No history of vomiting. No definite chills. No history of dizziness or syncope. No shortness of breath. REVIEW OF SYSTEMS: Review of rest of systems otherwise currently negative. PAST MEDICAL HISTORY: No significant illness in the past. MEDICATIONS: He takes no medications on a regular basis. ALLERGIES: No known drug allergies. SOCIAL HISTORY: Denies smoking or alcohol. FAMILY HISTORY: Negative. PHYSICAL EXAMINATION: GENERAL: The patient is awake, alert. VITAL SIGNS: Temperature of 100.4, pulse at 91 per minute, blood pressure 133/81. SHEENT: Unremarkable. NECK: There is no JVD. No pedal edema. LUNGS: Equal bilaterally. No added sounds. CARDIOVASCULAR: S1 and S2 is regular. No murmurs. ABDOMEN: Soft. Bowel sounds are hypoactive. NEUROLOGIC: Nonfocal. MUSCULOSKELETAL: Normal. ASSESSMENT AND PLAN: * Acute perforated appendicitis with sepsis. The patient is status post laparoscopic appendectomy. He will be placed on intravenous fluids along with intravenous Zosyn. * Obesity. MD NORI Baron/DANIELA TID: [id number] RECEIPT: [id number]
[2025-04-27] MEDS: SODIUM CHLORIDE 0.9% 1,000 ML IV SCH (17:26)
[2025-04-27] MEDS: MELATONIN 5 MG TAB PO ONE (22:38)
[2025-04-27] MEDS: BUPIVACAINE 0.5% P/F INJ 10 ML VIAL ONE (23:33)
[2025-04-27] MEDS: SODIUM CHLORIDE 0.9% 1,000 ML IV ONE (23:33)
[2025-04-28] VITALS (7 sets, daily range): BP systolic 123–149; BP diastolic 79–97; PULSE 78–93; RESP 16–20; TEMP 97.8–98.5; O2SAT 94–98
[2025-04-28 07:29] LABS: Hematocrit 37.2 % (41.0-53.0); Hemoglobin 13.2 g/dL (13.5-17.5); Mean Corpuscular Hemoglobin 29.9 pg (28.0-32.0); Mean Corpuscular Volume 84.6 fL (80.0-100.0); Nucleated Red Blood Cells % 0.0 %
[2025-04-28 07:46] LABS: Alanine Aminotransferase 18 U/L (7-40); Alkaline Phosphatase 99 U/L (46-116); Anion Gap 11 (5-15); BUN/Creatinine Ratio 10.9 (10.0-20.0); Blood Urea Nitrogen 10 mg/dL (9-23); Carbon Dioxide 25 mmol/L (20-31); Glucose 103 mg/dL (74-106); Potassium 3.6 mmol/L (3.5-5.1); Sodium 144 mmol/L (136-145); Total Protein 6.5 g/dL (5.7-8.2)
[2025-04-28 07:47] LABS: Albumin 3.6 g/dL (3.2-4.8); Bilirubin, Total 1.0 mg/dL (0.2-1.0)
[2025-04-28 07:49] LABS: Calcium 8.2 mg/dL (8.7-10.4); Chloride 108 mmol/L (98-107)
--- NOTE | 2025-04-28 12:27 | DVHPN2 ---
Progress Note - Surgical Date Seen: Apr 28, 2025 Post op day Post op day: 2 Subjective Patient reports: Feels better (Patient's condition continues to improve, tolerating diet, no abdominal pain complaints) Review of Systems: Deferred Objective Vital signs Vital Sign Date Time Temp Pulse Resp B/P (MAP) Pulse Ox O2 Delivery O2 Flow Rate FiO2 04/28/25 09:00 97.8 86 18 125/86 (99) 95 97.8 04/27/25 20:00 Room Air* 0 21 Total Intake and Output 04/27/25 04/27/25 04/28/25 15:00 23:00 07:00 Intake Total 340 ml 1410 ml 800 ml Balance 340 ml 1410 ml 800 ml Medications Current Medications Medications Dose Ordered Sig/Kalie Route Start Time Stop Time Status Last Admin Dose Admin Piperacillin Sod/ Tazobactam Sod 100 ml @ 25 mls/hr Q8HR IV 04/26/25 22:00 04/28/25 05:29 25 MLS/HR Nitroglycerin 0.4 mg Q5MINP PRN SL 04/26/25 18:45 Morphine Sulfate 2 mg Q30M PRN IV 04/26/25 19:00 Acetaminophen/ Hydrocodone Bitart 1 tab Q6HPRN PRN PO 04/27/25 11:30 Sodium Chloride 1,000 ml @ 100 mls/hr Q10H IV 04/27/25 13:15 04/27/25 23:32 100 MLS/HR Hydromorphone HCl 0.5 mg Q4HPRN PRN IV 04/27/25 13:15 Laboratory Laboratory Tests 04/28/25 05:12 Test 04/28/25 05:12 Range/Units Serum Glucose 103 74-106 mg/dL Microbiology Date/Time Source Procedure Growth Status 04/27/25 04:00 Nose MRSA Screen - Final Complete 04/26/25 13:18 Blood Blood Culture - Preliminary NO GROWTH AFTER 24 HOURS OF INCUBATION. Resulted Examination: GENERAL:Normal, ABDOMEN:Normal (Nondistended, incision sites with skin glue in place and without surrounding signs of infection, soft, depressible, appropriate tenderness) Labs and/or images reviewed: Labs reviewed by me (Leukocytosis down trending 20 from 23.6) Problem List/Assessment/Plan Assessment and Plan Mr. Camarena is a 50-year-old male who presented yesterday with acute appendicitis. He is postop day 2 from laparoscopic appendectomy due to a gangrenous and perforated appendix. There was abscess pocket adjacent to the appendix. Patient will benefit from 48 hours of IV antibiotics followed by 3 more days of p.o. antibiotics upon discharge for a total of 5 days. I explained to the patient that this is to try to limit and abscess from forming although despite the postoperative antibiotics, and abscess my still form. With perforated appendicitis this approximately a 30-40% increased risk of developing an intraperitoneal abscess. Interval: Doing well, once he finishes 48 hours of IV antibiotics he can be discharged home with 3 more days of p.o. antibiotics. 1. IV antibiotics for 48 hours 2. Upon discharge he is going to need 3 more days of p.o. antibiotics 3. Regular diet 4. A.m. labs 5. Pain and nausea control 6. Out of bed and ambulate Upon discharge: 1. Augmentin 875-125 mg 1 tab p.o. every 12 hours x3 days 2. Regular diet 3. No lifting over 10 lb for 6-8 weeks 4. May shower, soap and water okay to run over incision sites. No bathing or swimming for 2 weeks after surgery. 5. 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 Follow up with Dr. Wen in 2 weeks at surgery Clinic Plan discussed with Plan discussed with: Patient, Other (Mother) Visit Coding Surgery Date of Service if different f: Apr 28, 2025 Billing Provider: SANFORD SPENCER MD Surgery Visit Codes: [id number] INP/OBS CARE(HIGH) SANFORD SPENCER MD Apr 28, 2025 12:27
--- NOTE | 2025-04-28 13:04 | DVHPN2 ---
Reviewed: Care Plan, H&P, Labs, Medications, Previous Orders, Radiology Changes from previous H/P or p: No Changes Objective Vitals Vital Signs Date Time Temp Pulse Resp B/P (MAP) Pulse Ox O2 Delivery O2 Flow Rate FiO2 04/28/25 09:00 97.8 86 18 125/86 (99) 95 97.8 04/27/25 20:00 Room Air* 0 21 Intake/Output Intake and Output 04/28/25 07:00 Intake Total 2550 ml Balance 2550 ml Intake Oral 2100 ml IV Total 450 ml # Voids 12 Medications Current Medications Medications Dose Ordered Sig/Kalie Route Start Time Stop Time Status Last Admin Dose Admin Piperacillin Sod/ Tazobactam Sod 100 ml @ 25 mls/hr Q8HR IV 04/26/25 22:00 04/28/25 05:29 25 MLS/HR Nitroglycerin 0.4 mg Q5MINP PRN SL 04/26/25 18:45 Morphine Sulfate 2 mg Q30M PRN IV 04/26/25 19:00 Acetaminophen/ Hydrocodone Bitart 1 tab Q6HPRN PRN PO 04/27/25 11:30 Sodium Chloride 1,000 ml @ 100 mls/hr Q10H IV 04/27/25 13:15 04/27/25 23:32 100 MLS/HR Hydromorphone HCl 0.5 mg Q4HPRN PRN IV 04/27/25 13:15 Laboratory Results Laboratory Tests 04/28/25 05:12 Chemistry Test 04/28/25 05:12 Albumin 3.6 g/dL (3.2-4.8) Calcium Level 8.2 mg/dL (8.7-10.4) L Total Protein 6.5 g/dL (5.7-8.2) LFT Test 04/28/25 05:12 Alanine Aminotransferase (ALT) 18 U/L (7-40) Alkaline Phosphatase 99 U/L (46-116) Aspartate Amino Transferase (AST) 19 U/L (13-40) Total Bilirubin 1.0 mg/dL (0.2-1.0) Urinalysis Test 04/26/25 11:30 Urine Color Light-orange (Yellow) Urine Clarity Clear (Clear) Urine pH 6.0 (5.0-9.0) Urine Specific [place] 1.021 (1.001-1.035) Urine Protein Trace (Negative) H Urine Ketones Negative (Negative) Urine Blood Negative /uL (Negative) Urine Nitrite Negative (Negative) Urine Bilirubin Negative (Negative) Urine Urobilinogen Normal mg/dL (Negative) Urine Leukocyte Esterase Negative /uL (Negative) Urine RBC 1 /hpf (0 - 3) Urine Microscopic WBC 3 /HPF (0-3) Urine Squamous Epithelial Cells None seen /hpf (<5) Urine Bacteria None seen /hpf (None Seen) Urine Mucus Few (None Seen) Urine Glucose Normal mg/dL (Normal) Microbiology Microbiology Date/Time Source Procedure Growth Status 04/27/25 04:00 Nose MRSA Screen - Final Complete 04/26/25 13:18 Blood Blood Culture - Preliminary NO GROWTH AFTER 24 HOURS OF INCUBATION. Resulted Labs and/or images reviewed: Labs reviewed by me, Image(s) reviewed by me Assessment/Plan Assessment/Plan Septic shock secondary to acute perforated appendicitis Acute Perforated appendicitis status post lap appendectomy by Dr. Wen continue Zosyn and pain medications Acute dehydration: IV fluids Acute abdominal pain Wound Cultures growing E coli, continue Zosyn Patient not stable for transfer to [place]; WBC still high 20 K Plan discussed with: Patient Date of Service: Apr 28, 2025 Billing Provider: KIRILL ALONZO MD Common Visit Codes: [id number] INP/OBS CARE(HIGH) KIRILL ALONZO MD Apr 28, 2025 13:04
[2025-04-28] MEDS: PIPERACILLIN-TAZO 4.5GM 100 ML IV SCH (15:56)
[2025-04-29 00:53] VITALS: BP 130/81; PULSE 82; RESP 20; TEMP 98.9; O2SAT 97
[2025-04-29 05:00] VITALS: BP 141/85; PULSE 86; RESP 20; TEMP 98.1; O2SAT 96
[2025-04-29] MEDS: HYDROcodone-ACET 5/325MG TAB PO PRN (06:31)
[2025-04-29 09:00] VITALS: BP 143/88; PULSE 85; RESP 18; TEMP 98.2; O2SAT 96
[2025-04-29 10:48] LABS: Hematocrit 41.4 % (41.0-53.0); Hemoglobin 14.2 g/dL (13.5-17.5); Mean Corpuscular Hemoglobin 29.8 pg (28.0-32.0); Mean Corpuscular Volume 86.6 fL (80.0-100.0); Nucleated Red Blood Cells % 0.0 %
--- NOTE | 2025-04-29 11:18 | DVHPN2 ---
Progress Note - Surgical Date Seen: Apr 29, 2025 Post op day Post op day: 3 Subjective Patient reports: Feels better (Patient condition continues to improve, he is doing very well, ambulating, tolerating diet, having bowel movements, no abdominal pain complaints.) Review of Systems: Deferred Objective Vital signs Vital Sign Date Time Temp Pulse Resp B/P (MAP) Pulse Ox O2 Delivery O2 Flow Rate FiO2 04/29/25 09:00 98.2 85 18 143/88 (106) 96 98.2 04/28/25 20:00 Room Air* 0 21 Total Intake and Output 04/28/25 04/28/25 04/29/25 15:00 23:00 07:00 Intake Total 100 ml 1000 ml 1800 ml Balance 100 ml 1000 ml 1800 ml Medications Current Medications Medications Dose Ordered Sig/Kalie Route Start Time Stop Time Status Last Admin Dose Admin Nitroglycerin 0.4 mg Q5MINP PRN SL 04/26/25 18:45 Morphine Sulfate 2 mg Q30M PRN IV 04/26/25 19:00 Acetaminophen/ Hydrocodone Bitart 1 tab Q6HPRN PRN PO 04/27/25 11:30 04/29/25 06:31 1 TAB Hydromorphone HCl 0.5 mg Q4HPRN PRN IV 04/27/25 13:15 Piperacillin Sod/ Tazobactam Sod 100 ml @ 25 mls/hr Q6H IV 04/28/25 15:00 04/29/25 09:13 25 MLS/HR Laboratory Laboratory Tests 04/29/25 10:23 04/28/25 05:12 Test 04/28/25 05:12 Range/Units Serum Glucose 103 74-106 mg/dL Microbiology Date/Time Source Procedure Growth Status 04/27/25 04:00 Nose MRSA Screen - Final Complete 04/26/25 13:18 Blood Blood Culture - Preliminary NO GROWTH AFTER 48 HOURS OF INCUBATION. Resulted Examination: GENERAL:Normal, ABDOMEN:Normal (Nondistended, soft, depressible, incision sites with skin glue in place and without surrounding signs of infection, appropriate tenderness.) Labs and/or images reviewed: Labs reviewed by me (Leukocytosis 13.9 from 20.1) Problem List/Assessment/Plan Assessment and Plan Mr. Camarena is a 50-year-old male who presented yesterday with acute appendicitis. He is postop day 2 from laparoscopic appendectomy due to a gangrenous and perforated appendix. There was abscess pocket adjacent to the appendix. Patient will benefit from 48 hours of IV antibiotics followed by 3 more days of p.o. antibiotics upon discharge for a total of 5 days. I explained to the patient that this is to try to limit and abscess from forming although despite the postoperative antibiotics, and abscess my still form. With perforated appendicitis this approximately a 30-40% increased risk of developing an intraperitoneal abscess. Interval: Patient continues to do well, vital signs within normal limits, leukocytosis continues to downtrend, tolerating diet, ambulating. He is cleared for discharge per surgical standpoint, as he already completed 48 hours of IV antibiotics. Upon discharge: 1. Augmentin 875-125 mg 1 tab p.o. every 12 hours x3 days 2. Regular diet 3. No lifting over 10 lb for 6-8 weeks 4. May shower, soap and water okay to run over incision sites. No bathing or swimming for 2 weeks after surgery. 5. Pain control with Tylenol and/or ibuprofen, please follow big data solutions architect's directions 6. Follow up with Dr. Wen in 2 weeks at surgery Clinic My Orders My Orders Orders - SANFORD SPENCER MD Procedure Category Date Status Time Piperacillin-Tazo PHA 04/28/25 In Process 4.5gm (Zosyn 4.5gm/100 15:00 Plan discussed with Plan discussed with: Patient Visit Coding Surgery Date of Service if different f: Apr 29, 2025 Billing Provider: SANFORD SPENCER MD Surgery Visit Codes: [id number] INP/OBS CARE(HIGH) SANFORD SPENCER MD Apr 29, 2025 11:18
[2025-04-29 13:00] VITALS: BP 133/83; PULSE 86; RESP 20; TEMP 98.7; O2SAT 93
--- NOTE | 2025-04-29 13:34 | DVHPN2 ---
Reviewed: Care Plan, H&P, Labs, Medications, Previous Orders, Radiology Changes from previous H/P or p: No Changes Objective Vitals Vital Signs Date Time Temp Pulse Resp B/P (MAP) Pulse Ox O2 Delivery O2 Flow Rate FiO2 04/29/25 09:00 98.2 85 18 143/88 (106) 96 98.2 04/29/25 07:35 Room Air* 0 21 Intake/Output Intake and Output 04/29/25 07:00 Intake Total 2900 ml Balance 2900 ml Intake Oral 2500 ml IV Total 400 ml # Voids 6 Medications Current Medications Medications Dose Ordered Sig/Kalie Route Start Time Stop Time Status Last Admin Dose Admin Nitroglycerin 0.4 mg Q5MINP PRN SL 04/26/25 18:45 Morphine Sulfate 2 mg Q30M PRN IV 04/26/25 19:00 Acetaminophen/ Hydrocodone Bitart 1 tab Q6HPRN PRN PO 04/27/25 11:30 04/29/25 06:31 1 TAB Hydromorphone HCl 0.5 mg Q4HPRN PRN IV 04/27/25 13:15 Piperacillin Sod/ Tazobactam Sod 100 ml @ 25 mls/hr Q6H IV 04/28/25 15:00 04/29/25 09:13 25 MLS/HR Laboratory Results Laboratory Tests 04/28/25 05:12 04/29/25 10:23 Urinalysis Test 04/26/25 11:30 Urine Color Light-orange (Yellow) Urine Clarity Clear (Clear) Urine pH 6.0 (5.0-9.0) Urine Specific [place] 1.021 (1.001-1.035) Urine Protein Trace (Negative) H Urine Ketones Negative (Negative) Urine Blood Negative /uL (Negative) Urine Nitrite Negative (Negative) Urine Bilirubin Negative (Negative) Urine Urobilinogen Normal mg/dL (Negative) Urine Leukocyte Esterase Negative /uL (Negative) Urine RBC 1 /hpf (0 - 3) Urine Microscopic WBC 3 /HPF (0-3) Urine Squamous Epithelial Cells None seen /hpf (<5) Urine Bacteria None seen /hpf (None Seen) Urine Mucus Few (None Seen) Urine Glucose Normal mg/dL (Normal) Microbiology Microbiology Date/Time Source Procedure Growth Status 04/27/25 04:00 Nose MRSA Screen - Final Complete 04/26/25 13:18 Blood Blood Culture - Preliminary NO GROWTH AFTER 72 HOURS OF INCUBATION. Resulted Labs and/or images reviewed: Labs reviewed by me, Image(s) reviewed by me Assessment/Plan Assessment/Plan Septic shock secondary to acute perforated appendicitis Acute Perforated appendicitis status post lap appendectomy by Dr. Wen treated with the Zosyn Acute dehydration: IV fluids Acute abdominal pain Wound Cultures growing E coli, continue Zosyn Patient not stable for transfer to [place]; Cleared for discharge by surgeon Cultures from the fluid at the operation site came positive for E coli Proteus mirabilis sensitive to Levaquin Cipro, resistant to Augmentin suggested by the surgeon. Plan discussed with: Patient My Orders Orders - KIRILL ALONZO MD Procedure Category Date Status Time Soft Diet DIET 04/28/25 Transmitted Dinner Date of Service: Apr 29, 2025 Billing Provider: KIRILL ALONZO MD Common Visit Codes: [id number] INP/OBS CARE(HIGH) KIRILL ALONZO MD Apr 29, 2025 13:34
[2025-04-29] MEDS ORDERED: HYDR-4902 PO (13:36)
[2025-04-29] MEDS ORDERED: LEVO500T91 PO (13:36)
[2025-04-29] MEDS ORDERED: METR-344 PO (13:36)
--- NOTE | 2025-04-29 13:40 | DVHDS2 ---
Discharge Summary Date of Admission Apr 26, 2025 at 18:41 Date of Discharge: Apr 29, 2025 Admitting Diagnosis Right lower quadrant abdominal pain Wounds: Appendectomy Labs/Diagnostic Data: Laboratory Results Test 04/29/25 10:23 04/28/25 05:12 04/26/25 11:30 04/26/25 11:07 White Blood Count 13.9 10^3/uL (4.4-10.8) Red Blood Count 4.79 10^6/uL (4.5-5.90) Hemoglobin 14.2 g/dL (13.5-17.5) Hematocrit 41.4 % (41.0-53.0) Mean Corpuscular Volume 86.6 fL (80.0-100.0) Mean Corpuscular Hemoglobin 29.8 pg (28.0-32.0) Mean Corpuscular Hemoglobin Concent 34.4 g/dL (32.0-36.0) Red Cell Distribution Width 13.5 % (11.8-14.3) Platelet Count 410 10^3/uL (140-450) Mean Platelet Volume 7.3 fL (6.9-10.8) Neutrophils (%) (Auto) 78.5 % (37.0-80.0) Lymphocytes (%) (Auto) 13.6 % (10.0-50.0) Monocytes (%) (Auto) 6.6 % (0.0-12.0) Eosinophils (%) (Auto) 1.0 % (0.0-7.0) Basophils (%) (Auto) 0.3 % (0.0-2.0) Neutrophils # (Auto) 10.9 10 ^3/uL (1.6-8.6) Lymphocytes # (Auto) 1.9 10 ^3/uL (0.4-5.4) Monocytes # (Auto) 0.9 10 ^3/uL (0-1.3) Eosinophils # (Auto) 0.1 10 ^3/uL (0-0.8) Basophils # (Auto) 0 10 ^3/uL (0-0.2) Nucleated Red Blood Cells 0.0 % Sodium Level 144 mmol/L (136-145) Potassium Level 3.6 mmol/L (3.5-5.1) Chloride Level 108 mmol/L (98-107) Carbon Dioxide Level 25 mmol/L (20-31) Anion Gap 11 (5-15) Blood Urea Nitrogen 10 mg/dL (9-23) Creatinine 0.92 mg/dL (0.700-1.30) Glomerular Filtration Rate Calc 103 mL/min (>90) BUN/Creatinine Ratio 10.9 (10.0-20.0) Serum Glucose 103 mg/dL (74-106) Calcium Level 8.2 mg/dL (8.7-10.4) Total Bilirubin 1.0 mg/dL (0.2-1.0) Aspartate Amino Transferase (AST) 19 U/L (13-40) Alanine Aminotransferase (ALT) 18 U/L (7-40) Alkaline Phosphatase 99 U/L (46-116) Total Protein 6.5 g/dL (5.7-8.2) Albumin 3.6 g/dL (3.2-4.8) Urine Color Light-orange (Yellow) Urine Clarity Clear (Clear) Urine pH 6.0 (5.0-9.0) Urine Specific [place] 1.021 (1.001-1.035) Urine Protein Trace (Negative) Urine Ketones Negative (Negative) Urine Blood Negative /uL (Negative) Urine Nitrite Negative (Negative) Urine Bilirubin Negative (Negative) Urine Urobilinogen Normal mg/dL (Negative) Urine Leukocyte Esterase Negative /uL (Negative) Urine RBC 1 /hpf (0 - 3) Urine Microscopic WBC 3 /HPF (0-3) Urine Squamous Epithelial Cells None seen /hpf (<5) Urine Bacteria None seen /hpf (None Seen) Urine Mucus Few (None Seen) Urine Glucose Normal mg/dL (Normal) Prothrombin Time 11.9 sec (9.3-11.8) Prothrombin Time INR 1.14 (0.9-1.15) Activated Partial Thromboplast Time 34.2 SEC (24.5-34.5) Magnesium Level 2.2 mg/dL (1.6-2.6) Lipase 34 U/L (12-53) Other Laboratory Tests 04/29/25 10:23 04/28/25 05:12 Brief Hx & Hospital Course: 50-year-old male came in for right lower quadrant abdominal pain found to have perforated gangrenous appendicitis. Underwent laparoscopic appendectomy by Dr. Wen treated with the antibiotics and pain medications IV fluids postop course uneventful wound cultures came positive for E coli swallowing Proteus mirabilis discharged home on Levaquin and Flagyl [place] He will follow up with his primary Dr and Dr. Wen Consults/Reason for consult Surgeon Dr. Wen Operations or Procedures Laparoscopic appendectomy Condition at Discharge: Fair Final Diagnosis/Problems List Septic shock secondary to acute perforated appendicitis Acute Perforated appendicitis status post lap appendectomy by Dr. Wen treated with the Zosyn Acute dehydration: IV fluids Acute abdominal pain Wound Cultures growing E coli, continue Zosyn Discharge Disposition: Home Discharge Instruct/Medications Diet: Regular Activity: Light activity Follow Up/Referral: Follow up with surgeon Dr. Wen in 10 days Medications: Levaquin Flagyl [place] Transmitted to pharmacy Scheduled Levofloxacin Hemihydrate (Levaquin 500 Mg), 1 TAB PO DAILY Metronidazole (Flagyl), 1 TAB PO TID Scheduled PRN Hydrocodone-Acetaminophen (Hydrocodone Bitartrate/AC 5-325 mg), 1 TAB PO QID PRN 39 (Time Taken for discharge summary 39 minutes) Discharge Statement: "Patient was advised to return to the ER or call 911 if any headaches, dizziness, shortness of breath, chest pain, abdominal pain, bleeding, fevers, or worsening of medical condition. Patient was counseled about treatment plan, medications, possible side effects, patientverbalized understanding. All questions were answered to the best of my ability. This discharge took greater then 30 minutes in planning, reviewing documentation, counseling the patient, and discussing with other team members." ASSESSMENT ASSESSMENT Hospital Course Uneventful Assessment Septic shock secondary to acute perforated appendicitis Acute Perforated appendicitis status post lap appendectomy by Dr. Wen treated with the Zosyn Acute dehydration: IV fluids Acute abdominal pain Wound Cultures growing E coli, continue Zosyn Date of Service: Apr 29, 2025 Billing Provider: KIRILL ALONZO MD Common Visit Codes: [id number] INP/OBS CARE(HIGH) KIRILL ALONZO MD Apr 29, 2025 13:40
[2025-04-29 16:17] VITALS: TEMP 37.1
[2025-04-29 17:00] VITALS: BP 137/91; PULSE 92; RESP 19; TEMP 98.1; O2SAT 94
== END 2025-04-29 17:00 | disposition home or self-care (01) | DRG 853 ==
LOC: ER 10:06 → OVERFLOW 18:41 → TELE-WESTW 20:04 → WEST WING 04-27 18:20
PROVIDERS: ADMIT Family Medicine; ATTEND Family Medicine
PROC: 0DTJ4ZZ Resection of Appendix, Percutaneous Endoscopic Approach (ICD-10-PCS; principal; 2025-04-26 15:51)
DX: A41.9 Sepsis, unspecified organism (principal); K35.32 Acute appendicitis with perforation, localized peritonitis, and gangrene, without abscess; R65.21 Severe sepsis with septic shock; E66.9 Obesity, unspecified; Z68.38 Body mass index [BMI] 38.0-38.9, adult; K38.1 Appendicular concretions; E86.0 Dehydration; K66.0 Peritoneal adhesions (postprocedural) (postinfection); B96.20 Unspecified Escherichia coli [E. coli] as the cause of diseases classified elsewhere
CPT/HCPCS: 36415; 71046; 74177; 80048; 80053; 81001; 83690; 83735; 85025; 85610; 85730; 87040; 87070; 87075; 87077; 87081; 87186; 87205; 96365; 96375; G0378; J0131; J0694; J1100; J1885; J2003; J2250; J2405; J2543; J2704; J3490